=== PATIENT | female | born 1960 | race Caucasian/White ===

== ENCOUNTER 2022-03-31 10:43 | Outpatient (CLI) | payer BC | END 2022-03-31 10:44 | disposition home or self-care (01) | LOC: BICRAD 10:43 | PROVIDERS: ATTEND Family Medicine | DX: S83.91XA Sprain of unspecified site of right knee, initial encounter (principal); M23.41 Loose body in knee, right knee ==

== ENCOUNTER 2022-05-22 09:24 | Outpatient (CLI) | payer BC | END 2022-05-22 09:25 | disposition home or self-care (01) | LOC: MRI 09:24 | PROVIDERS: ATTEND Student in an Organized Health Care Education/Training Program | DX: M25.561 Pain in right knee (principal); M25.562 Pain in left knee; M23.41 Loose body in knee, right knee; S83.241A Other tear of medial meniscus, current injury, right knee, initial encounter ==

== ENCOUNTER 2023-04-26 09:58 | Outpatient (CLI) | payer OTHER | END 2023-04-26 09:59 | disposition home or self-care (01) | LOC: BICRAD 09:58 | PROVIDERS: ATTEND Internal Medicine | DX: Z02.71 Encounter for disability determination (principal); M19.072 Primary osteoarthritis, left ankle and foot; Z98.890 Other specified postprocedural states ==

== ENCOUNTER 2023-06-28 15:25 | Outpatient (CLI) | payer BC | END 2023-06-28 15:26 | disposition home or self-care (01) | LOC: BICRAD 15:25 | PROVIDERS: ATTEND Family Medicine | DX: M79.644 Pain in right finger(s) (principal); M19.041 Primary osteoarthritis, right hand ==

== ENCOUNTER 2023-07-05 08:59 | Outpatient (CLI) | payer BC | END 2023-07-05 09:00 | disposition home or self-care (01) | LOC: BICMAMMO 08:59 | PROVIDERS: ATTEND Family Medicine | DX: N63.20 Unspecified lump in the left breast, unspecified quadrant (principal) | CPT/HCPCS: G0279 ==

== ENCOUNTER 2023-11-23 12:38 | Outpatient (CLI) | payer BC | END 2023-11-23 12:39 | disposition home or self-care (01) | LOC: RAD 12:38 | PROVIDERS: ATTEND Nurse Practitioner Family | DX: S99.921A Unspecified injury of right foot, initial encounter (principal) ==

== ENCOUNTER 2024-07-18 10:47 | Outpatient (CLI) | payer MEDICARE, OTHER | END 2024-07-18 10:48 | disposition home or self-care (01) | LOC: BICRAD 10:47 | PROVIDERS: ATTEND Family Medicine | DX: M25.552 Pain in left hip (principal); M89.8X5 Other specified disorders of bone, thigh; Z98.1 Arthrodesis status; Z96.643 Presence of artificial hip joint, bilateral; Z98.890 Other specified postprocedural states | CPT/HCPCS: 72170 ==